=== PATIENT | male | born 1940 | race Caucasian/White ===

== ENCOUNTER 2018-07-11 23:25 | Emergency (ER) | payer MEDICARE, OTHER ==
[~2018-07-11] VITALS: Ht 170.2 cm; Wt 95.3 kg
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
[2018-07-12] MEDS ORDERED: TDAP [DIPH/PERTUSSIS/TET] 0.5 ML VIAL IM ONE ×2 (00:14)
--- NOTE | 2018-07-12 01:07 | NUR ---
PT BACK FROM CT
[2018-07-12] MEDS ORDERED: LIDOCAINE 1%-EPI 1:100,000 20 ML VIAL ONE (01:12)
[2018-07-12] MEDS ORDERED: LIDOCAINE 1%-EPI 1:100,000 20 ML VIAL TP ONE (01:30)
[2018-07-12] MEDS ORDERED: ACETAMINOPHEN 325 MG TABLET PO ONE (02:30)
[2018-07-12] MEDS ORDERED: ACETAMINOPHEN ES 500 MG TABLET ONE (02:39)
--- NOTE | 2018-07-12 02:57 | NUR ---
Patient discharged to home in stable condition. Rx given and copy provided, no injuries noted on imagery. Written and verbal after care instructions given. Patient verbalizes understanding of instruction.
[2018-07-12 03:09] VITALS: BP 132/70
== END 2018-07-12 03:12 | disposition home or self-care (01) ==
LOC: ER 23:26
DX: S22.32XA Fracture of one rib, left side, initial encounter for closed fracture (principal); S01.01XA Laceration without foreign body of scalp, initial encounter; S80.02XA Contusion of left knee, initial encounter; S60.042A Contusion of left ring finger without damage to nail, initial encounter; R59.1 Generalized enlarged lymph nodes; I10 Essential (primary) hypertension; Z98.890 Other specified postprocedural states; V49.49XA Driver injured in collision with other motor vehicles in traffic accident, initial encounter; Y93.89 Activity, other specified; Y92.89 Other specified places as the place of occurrence of the external cause; Y99.8 Other external cause status
CPT/HCPCS: 70450-TC; 71100-TC; 72125-TC; 72170-TC; 73130-TC; 73590-TC; 90715; A6402; J3490